=== PATIENT | female | born 1940 | race Two or more races ===

== ENCOUNTER 2023-06-06 20:29 | Inpatient (IN) | payer MEDICARE, OTHER ==
[~2023-06-06] VITALS: Ht 152.4 cm; Wt 49.0 kg
[2023-06-06] MEDS ORDERED: IV NS 0.9% 1,000 ML BAG IV ONE (21:30)
[2023-06-06 21:58] LABS: BASOPHILS % (AUTO) 0.1 % (0.0-2.0); EOSINOPHILS # (AUTO) 0.1 K/uL (0.0-0.7); EOSINOPHILS % (AUTO) 1.4 % (0.0-6.0); HEMATOCRIT 45 % (33-45); HEMOGLOBIN 14.2 g/dL (11.5-14.8); LYMPHOCYTES # (AUTO) 1.5 K/uL (0.8-4.8); LYMPHOCYTES % (AUTO) 17.4 % (20.0-44.0); MEAN CORPUSCULAR HEMOGLOBIN 29 PG (26.0-33.0); MEAN CORPUSCULAR HGB CONC 31 g/dl (31.0-36.0); MEAN CORPUSCULAR VOLUME 92 fL (82-100); MONOCYTES # (AUTO) 0.8 K/uL (0.1-1.30); MONOCYTES % (AUTO) 8.7 % (2.0-12.0); NEUTROPHILS # (AUTO) 6.4 K/uL (1.8-8.9); NEUTROPHILS % (AUTO) 72.4 % (43.0-81.0); PLATELET COUNT (AUTO) 142 K/uL (150-450); RED CELL DISTRIBUTION WIDTH 16.5 % (11.5-15.0); WHITE BLOOD COUNT (AUTO) 8.9 K/uL (4.3-11.0)
[2023-06-06 22:15] LABS: LACTIC ACID 1.4 mmol/L (0.4-2.0)
[2023-06-06 22:20] LABS: THYROID STIMULATING HORMONE 0.458 uIU/mL (0.358-3.74)
[2023-06-06 22:43] LABS: APPEARANCE,URINE SLIGHTLY CLOUDY (CLEAR); BILIRUBIN,URINE NEGATIVE (NEGATIVE); BLOOD, URINE 1+ Ery/uL (NEGATIVE); COLOR,URINE YELLOW (YELLOW); KETONES,URINE NEGATIVE (NEGATIVE); LEUKOCYTE ESTERASE ,URINE NEGATIVE (NEGATIVE); NITRITE, URINE NEGATIVE (NEGATIVE); PH,URINE 5.5 (5.0-8.0); PROTEIN,URINE 2+ mg/dl (NEGATIVE); UGLUCOSE 3+ mg/dL (NEGATIVE); UROBILINOGEN,URINE 0.2 EU/dL (0.2)
[2023-06-06 23:10] LABS: ALKALINE PHOSPHATASE 164 U/L (46-116); ASPARTATE AMINOTRANSFERASE 57 U/L (15-37); BILIRUBIN,DIRECT 0.2 mg/dL (0.0-0.2); BILIRUBIN,TOTAL 0.8 mg/dL (0.2-1.0)
[2023-06-06 23:11] LABS: ALANINE AMINOTRANSFERASE 134 U/L (12-78); ALBUMIN 2.9 g/dL (3.4-5.0); TOTAL PROTEIN, SERUM 6.9 g/dL (6.4-8.2)
[2023-06-06 23:17] LABS: CALCIUM, SERUM 8.9 mg/dL (8.5-10.1); CARBON DIOXIDE 24 mmol/L (21-32)
[2023-06-06 23:22] LABS: CHLORIDE 131 mmol/L (98-107); GLUCOSE 674 mg/dL (74-106); SODIUM SERUM 167 mmol/L (136-145); UREA NITROGEN, BLOOD 87 mg/dL (7-18)
[2023-06-07] MEDS ORDERED: ZOLPIDEM TARTRATE 5 MG TABLET PO PRN
[2023-06-07] MEDS ORDERED: IV NS 0.9% 1,000 ML IV PRN
[2023-06-07] MEDS ORDERED: Z GUARD REMEDY 4 OZ OINT TP PRN
[2023-06-07] MEDS ORDERED: INSULIN REGULAR, HUMAN 100 UNIT/ML 3 ML VIAL SQ PRN
[2023-06-07] MEDS ORDERED: ACETAMINOPHEN 325 MG TABLET PO PRN
[2023-06-07] MEDS ORDERED: *INSULIN REGULAR(HUMULIN R)HUM 100 UNIT/ML VIAL SQ PRN
[2023-06-07] MEDS ORDERED: MAGNESIUM HYDROXIDE 30 ML UDC PO PRN
[2023-06-07] MEDS ORDERED: MAG HYDROX/AL HYDROX/SIMETH 30 ML UDC PO PRN
[2023-06-07] MEDS ORDERED: ONDANSETRON HCL/PF 4 MG/2 ML VIAL IVP PRN
[2023-06-07 00:09] LABS: ADD URINE CULTURE YES; BACTERIA,URINE 4+ /HPF (None Seen); MUCUS,URINE Many /LPF (None Seen); RBC,URINE 0-2 /HPF (0-2); WBC,URINE 0-2 /HPF (0-3); YEAST,URINE Few /HPF (None Seen)
[2023-06-07 04:00] VITALS: BP 145/73; TEMP 97.6; O2SAT 93
[2023-06-07 05:54] LABS: BASOPHILS % (AUTO) 0.1 % (0.0-2.0); EOSINOPHILS # (AUTO) 0.1 K/uL (0.0-0.7); EOSINOPHILS % (AUTO) 1.2 % (0.0-6.0); HEMATOCRIT 43 % (33-45); HEMOGLOBIN 13.4 g/dL (11.5-14.8); LYMPHOCYTES # (AUTO) 1.6 K/uL (0.8-4.8); LYMPHOCYTES % (AUTO) 17.1 % (20.0-44.0); MEAN CORPUSCULAR HEMOGLOBIN 29 PG (26.0-33.0); MEAN CORPUSCULAR HGB CONC 31 g/dl (31.0-36.0); MEAN CORPUSCULAR VOLUME 92 fL (82-100); MONOCYTES # (AUTO) 0.8 K/uL (0.1-1.30); MONOCYTES % (AUTO) 8.4 % (2.0-12.0); NEUTROPHILS # (AUTO) 6.7 K/uL (1.8-8.9); NEUTROPHILS % (AUTO) 73.2 % (43.0-81.0); PLATELET COUNT (AUTO) 128 K/uL (150-450); RED BLOOD CELL COUNT(AUTO) 4.68 MIL/uL (4.0-5.2); RED CELL DISTRIBUTION WIDTH 15.9 % (11.5-15.0); WHITE BLOOD COUNT (AUTO) 9.1 K/uL (4.3-11.0)
[2023-06-07 06:14] LABS: ALANINE AMINOTRANSFERASE 109 U/L (12-78); ALBUMIN 2.8 g/dL (3.4-5.0); ALKALINE PHOSPHATASE 140 U/L (46-116); ASPARTATE AMINOTRANSFERASE 33 U/L (15-37); BILIRUBIN,DIRECT 0.2 mg/dL (0.0-0.2); BILIRUBIN,TOTAL 0.9 mg/dL (0.2-1.0); CALCIUM, SERUM 8.9 mg/dL (8.5-10.1); CARBON DIOXIDE 24 mmol/L (21-32); CREATININE 2.8 mg/dL (0.6-1.3); MAGNESIUM 2.7 mg/dL (1.8-2.4); POTASSIUM 3.7 mmol/L (3.5-5.1); TOTAL PROTEIN, SERUM 6.5 g/dL (6.4-8.2)
[2023-06-07 06:28] LABS: SODIUM SERUM 170 mmol/L (136-145); THYROID STIMULATING HORMONE 0.404 uIU/mL (0.358-3.74)
[2023-06-07 06:29] LABS: CHLORIDE 133 mmol/L (98-107); GLUCOSE 548 mg/dL (74-106); UREA NITROGEN, BLOOD 86 mg/dL (7-18)
[2023-06-07] MEDS ORDERED: IV 1/2NS 1000 ML 1,000 ML IV PRN ×2 (06:41)
[2023-06-07] MEDS ORDERED: DEXTROSE 50%-WATER 50 ML DISP.SYRIN IV PRN ×2 (07:00)
[2023-06-07] MEDS: BLOOD SUGAR DIAGNOSTIC 1 EACH STRIP IN SCH ×5 (07:06→21:22)
[2023-06-07] MEDS: INSULIN REGULAR, HUMAN 100 UNIT/ML 3 ML VIAL SQ PRN ×4 (07:07→16:59)
[2023-06-07] MEDS ORDERED: BLOOD SUGAR DIAGNOSTIC 1 EACH STRIP VI SCH (07:30)
[2023-06-07 08:00] VITALS: BP 147/92; TEMP 97.4; O2SAT 97
[2023-06-07] MEDS ORDERED: ALLO100T PO (08:02)
[2023-06-07] MEDS ORDERED: CHOL3000 PO (08:02)
[2023-06-07] MEDS ORDERED: DIVA-76 PO (08:02)
[2023-06-07] MEDS ORDERED: METO100T14 PO (08:02)
[2023-06-07] MEDS ORDERED: QUET100T PO (08:02)
[2023-06-07] MEDS ORDERED: AMLO5TAB4 PO (08:02)
[2023-06-07] MEDS ORDERED: DOCU250C14 PO (08:02)
[2023-06-07] MEDS ORDERED: HALO2TAB PO (08:02)
[2023-06-07] MEDS ORDERED: ACET-868 PO (08:02)
[2023-06-07] MEDS ORDERED: MAGN400O6 PO (08:02)
[2023-06-07] MEDS ORDERED: ATOR20TA PO (08:02)
[2023-06-07] MEDS ORDERED: CLOP75TA15 PO (08:02)
[2023-06-07] MEDS ORDERED: EMPA25TA PO (08:02)
[2023-06-07] MEDS ORDERED: PANT40TA2 PO (08:02)
[2023-06-07] MEDS ORDERED: MAG-151 PO (08:02)
[2023-06-07] MEDS: PANTOPRAZOLE 40 MG TABLET.DR PO SCH (09:04)
[2023-06-07] MEDS: PIPERACILLIN /TAZOBACTAM 2.25 G in IV D5W 50 ML IV SCH ×3 (09:05→21:02)
[2023-06-07 12:00] VITALS: BP 144/59; TEMP 97.6; O2SAT 96
[2023-06-07 13:28] LABS: CALCIUM, SERUM 8.9 mg/dL (8.5-10.1); CARBON DIOXIDE 24 mmol/L (21-32); CREATININE 2.6 mg/dL (0.6-1.3); GLUCOSE 92 mg/dL (74-106)
[2023-06-07 13:31] LABS: CHLORIDE 137 mmol/L (98-107); SODIUM SERUM 174 mmol/L (136-145); UREA NITROGEN, BLOOD 83 mg/dL (7-18)
[2023-06-07] MEDS: IV D5W 1,000 ML IV PRN ×2 (14:48→20:40)
[2023-06-07 16:00] VITALS: BP 133/70; TEMP 97.9; O2SAT 98
[2023-06-07] MEDS ORDERED: IV D5W 1,000 ML IV ONE (16:00)
[2023-06-07 16:17] LABS: APPEARANCE,URINE CLOUDY (CLEAR); BILIRUBIN,URINE NEGATIVE (NEGATIVE); BLOOD, URINE 1+ Ery/uL (NEGATIVE); COLOR,URINE YELLOW (YELLOW); KETONES,URINE NEGATIVE (NEGATIVE); LEUKOCYTE ESTERASE ,URINE NEGATIVE (NEGATIVE); NITRITE, URINE NEGATIVE (NEGATIVE); PH,URINE 5.5 (5.0-8.0); PROTEIN,URINE 2+ mg/dl (NEGATIVE); UGLUCOSE 3+ mg/dL (NEGATIVE); UROBILINOGEN,URINE 0.2 EU/dL (0.2)
[2023-06-07] MEDS: POTASSIUM CL. PREMIX PERIPHER. 50 ML IV SCH ×4 (16:19→19:25)
[2023-06-07 16:39] LABS: ADD URINE CULTURE YES; BACTERIA,URINE Many /HPF (None Seen); SQUAMOUS EPITHELIAL CELL,UR Moderate /HPF (None Seen); YEAST,URINE Many /HPF (None Seen)
[2023-06-07 17:00] LABS: WBC,URINE 0-2 /HPF (0-3)
[2023-06-07 17:03] LABS: CALCIUM, SERUM 8.1 mg/dL (8.5-10.1); CARBON DIOXIDE 21 mmol/L (21-32); CREATININE 2.5 mg/dL (0.6-1.3); GLUCOSE 192 mg/dL (74-106); POTASSIUM 3.2 mmol/L (3.5-5.1); UREA NITROGEN, BLOOD 76 mg/dL (7-18)
[2023-06-07 17:05] LABS: CHLORIDE 136 mmol/L (98-107); SODIUM SERUM 170 mmol/L (136-145)
[2023-06-07 19:07] LABS: CALCIUM, SERUM 8.3 mg/dL (8.5-10.1); CARBON DIOXIDE 22 mmol/L (21-32); CREATININE 2.4 mg/dL (0.6-1.3); GLUCOSE 167 mg/dL (74-106); POTASSIUM 3.4 mmol/L (3.5-5.1); UREA NITROGEN, BLOOD 74 mg/dL (7-18)
[2023-06-07 19:11] LABS: CHLORIDE 131 mmol/L (98-107); SODIUM SERUM 166 mmol/L (136-145)
[2023-06-07 20:00] VITALS: BP 124/73; TEMP 98.4; O2SAT 98
[2023-06-07 22:51] LABS: CREATININE, URINE 86.4 MG/DL (30.0-125.0); URINE TOTAL PROTEIN 304.5 mg/dL (0-11.9)
[2023-06-08] VITALS: BP 144/68; TEMP 97.5; O2SAT 98
[2023-06-08] MEDS: BLOOD SUGAR DIAGNOSTIC 1 EACH STRIP IN SCH ×6 (01:04→21:58)
[2023-06-08] MEDS: INSULIN REGULAR, HUMAN 100 UNIT/ML 3 ML VIAL SQ PRN ×5 (01:07→22:21)
[2023-06-08 04:00] VITALS: BP 120/62; TEMP 97.6; O2SAT 96
[2023-06-08] MEDS: PIPERACILLIN /TAZOBACTAM 2.25 G in IV D5W 50 ML IV SCH ×3 (05:18→21:58)
[2023-06-08] MEDS: IV D5W 1,000 ML IV PRN ×2 (05:29→17:14)
[2023-06-08 06:28] LABS: BASOPHILS % (AUTO) 0.2 % (0.0-2.0); EOSINOPHILS # (AUTO) 0.2 K/uL (0.0-0.7); EOSINOPHILS % (AUTO) 1.9 % (0.0-6.0); HEMATOCRIT 38 % (33-45); LYMPHOCYTES # (AUTO) 1.6 K/uL (0.8-4.8); LYMPHOCYTES % (AUTO) 17.4 % (20.0-44.0); MEAN CORPUSCULAR HEMOGLOBIN 29 PG (26.0-33.0); MEAN CORPUSCULAR HGB CONC 32 g/dl (31.0-36.0); MEAN CORPUSCULAR VOLUME 91 fL (82-100); MONOCYTES # (AUTO) 0.7 K/uL (0.1-1.30); MONOCYTES % (AUTO) 7.3 % (2.0-12.0); NEUTROPHILS # (AUTO) 6.7 K/uL (1.8-8.9); NEUTROPHILS % (AUTO) 73.2 % (43.0-81.0); PLATELET COUNT (AUTO) 102 K/uL (150-450); RED BLOOD CELL COUNT(AUTO) 4.14 MIL/uL (4.0-5.2); RED CELL DISTRIBUTION WIDTH 15.5 % (11.5-15.0); WHITE BLOOD COUNT (AUTO) 9.1 K/uL (4.3-11.0)
[2023-06-08] MEDS: PANTOPRAZOLE 40 MG TABLET.DR PO SCH (07:30)
[2023-06-08 08:00] VITALS: BP 157/77; TEMP 97.9; O2SAT 100
[2023-06-08 08:03] LABS: ALANINE AMINOTRANSFERASE 74 U/L (12-78); ALBUMIN 2.4 g/dL (3.4-5.0); ALKALINE PHOSPHATASE 102 U/L (46-116); ASPARTATE AMINOTRANSFERASE 36 U/L (15-37); BILIRUBIN,TOTAL 1.1 mg/dL (0.2-1.0); CARBON DIOXIDE 22 mmol/L (21-32); CHLORIDE 125 mmol/L (98-107); CREATININE 2.2 mg/dL (0.6-1.3); GLUCOSE 358 mg/dL (74-106); MAGNESIUM 1.9 mg/dL (1.8-2.4); PHOSPHORUS 2.8 mg/dL (2.5-4.9); POTASSIUM 3.9 mmol/L (3.5-5.1); TOTAL PROTEIN, SERUM 5.5 g/dL (6.4-8.2); UREA NITROGEN, BLOOD 64 mg/dL (7-18)
[2023-06-08 08:08] LABS: SODIUM SERUM 157 mmol/L (136-145)
[2023-06-08 12:00] VITALS: BP 165/82; TEMP 98; O2SAT 98
[2023-06-08 16:00] VITALS: BP 155/81; TEMP 98.5; O2SAT 99
[2023-06-08] MEDS: GLUCERNA SHAKE 237 ML CAN PO SCH (16:32)
[2023-06-08] MEDS: CLOTRIMAZOLE 1% 15 GM TUBE TP SCH (16:33)
[2023-06-08 20:00] VITALS: BP 132/81; TEMP 97.8; O2SAT 98
[2023-06-09] MEDS: BLOOD SUGAR DIAGNOSTIC 1 EACH STRIP IN SCH ×6 (01:07→22:04)
[2023-06-09 04:00] VITALS: BP 152/75; TEMP 97; O2SAT 97
[2023-06-09] MEDS: PIPERACILLIN /TAZOBACTAM 2.25 G in IV D5W 50 ML IV SCH ×4 (04:01→20:24)
[2023-06-09] MEDS: INSULIN REGULAR, HUMAN 100 UNIT/ML 3 ML VIAL SQ PRN ×5 (04:21→22:07)
[2023-06-09] MEDS: IV D5W 1,000 ML IV PRN ×2 (04:27→12:07)
[2023-06-09 07:35] LABS: BASOPHILS % (AUTO) 0.2 % (0.0-2.0); EOSINOPHILS # (AUTO) 0.2 K/uL (0.0-0.7); EOSINOPHILS % (AUTO) 2.1 % (0.0-6.0); HEMATOCRIT 39 % (33-45); HEMOGLOBIN 12.9 g/dL (11.5-14.8); LYMPHOCYTES # (AUTO) 1.5 K/uL (0.8-4.8); LYMPHOCYTES % (AUTO) 19.8 % (20.0-44.0); MEAN CORPUSCULAR HEMOGLOBIN 29 PG (26.0-33.0); MEAN CORPUSCULAR HGB CONC 33 g/dl (31.0-36.0); MEAN CORPUSCULAR VOLUME 88 fL (82-100); MONOCYTES # (AUTO) 0.6 K/uL (0.1-1.30); MONOCYTES % (AUTO) 7.2 % (2.0-12.0); NEUTROPHILS # (AUTO) 5.5 K/uL (1.8-8.9); NEUTROPHILS % (AUTO) 70.7 % (43.0-81.0); PLATELET COUNT (AUTO) 95 K/uL (150-450); RED BLOOD CELL COUNT(AUTO) 4.43 MIL/uL (4.0-5.2); RED CELL DISTRIBUTION WIDTH 14.9 % (11.5-15.0); WHITE BLOOD COUNT (AUTO) 7.8 K/uL (4.3-11.0)
[2023-06-09] MEDS: PANTOPRAZOLE 40 MG TABLET.DR PO SCH ×2 (07:43→17:18)
[2023-06-09 07:59] LABS: CALCIUM, SERUM 7.8 mg/dL (8.5-10.1); CARBON DIOXIDE 22 mmol/L (21-32); CHLORIDE 114 mmol/L (98-107); CREATININE 1.8 mg/dL (0.6-1.3); GLUCOSE 178 mg/dL (74-106); POTASSIUM 3.1 mmol/L (3.5-5.1); SODIUM SERUM 148 mmol/L (136-145); UREA NITROGEN, BLOOD 39 mg/dL (7-18)
[2023-06-09] MEDS: GLUCERNA SHAKE 237 ML CAN PO SCH ×2 (08:00→17:18)
[2023-06-09] MEDS: CLOTRIMAZOLE 1% 15 GM TUBE TP SCH ×2 (09:14→17:31)
[2023-06-09] MEDS ORDERED: POTASSIUM CHLORIDE 20 MEQ TAB.PRT.SR PO SCH ×2 (10:00→10:30)
[2023-06-09 12:00] VITALS: BP 155/84; TEMP 97.9; O2SAT 97
[2023-06-09 12:09] LABS: ANISOCYTOSIS 1+; BASOPHILS % (MANUAL) 0 % (0.0-2.0); EOSINOPHILS % (MANUAL) 4 % (0-4); LYMPHOCYTES % (MANUAL) 17 % (16-48); MONOCYTES % (MANUAL) 6 % (0-11.0); NEUTROPHILS % (MANUAL) 73 (42-76); PLATELET ESTIMATE DECREASED
[2023-06-09] MEDS ORDERED: LORAZEPAM INJ 2 MG/ML VIAL IV PRN (16:00)
[2023-06-09] MEDS: ALLOPURINOL 100 MG TABLET PO SCH (17:17)
[2023-06-09] MEDS: DIVALPROEX SODIUM 250 MG TABLET.DR PO SCH (17:17)
[2023-06-09 20:00] VITALS: BP 135/72; TEMP 97.5; O2SAT 98
[2023-06-09] MEDS: QUETIAPINE FUMARATE 100 MG TABLET PO SCH (22:04)
[2023-06-09] MEDS: ATORVASTATIN 10 MG TABLET PO SCH (22:04)
[2023-06-10] MEDS: BLOOD SUGAR DIAGNOSTIC 1 EACH STRIP IN SCH ×6 (01:41→21:16)
[2023-06-10] MEDS: INSULIN REGULAR, HUMAN 100 UNIT/ML 3 ML VIAL SQ PRN ×5 (01:48→21:40)
[2023-06-10] MEDS: IV D5W 1,000 ML IV PRN ×2 (03:31→12:44)
[2023-06-10 04:00] VITALS: BP 155/62; TEMP 98.2; O2SAT 100
[2023-06-10] MEDS: PIPERACILLIN /TAZOBACTAM 2.25 G in IV D5W 50 ML IV SCH ×3 (04:26→20:09)
[2023-06-10 06:27] LABS: BASOPHILS % (AUTO) 0.4 % (0.0-2.0); EOSINOPHILS # (AUTO) 0.2 K/uL (0.0-0.7); EOSINOPHILS % (AUTO) 3.3 % (0.0-6.0); HEMATOCRIT 36 % (33-45); HEMOGLOBIN 11.8 g/dL (11.5-14.8); LYMPHOCYTES # (AUTO) 1.6 K/uL (0.8-4.8); LYMPHOCYTES % (AUTO) 22.1 % (20.0-44.0); MEAN CORPUSCULAR HEMOGLOBIN 29 PG (26.0-33.0); MEAN CORPUSCULAR HGB CONC 33 g/dl (31.0-36.0); MEAN CORPUSCULAR VOLUME 88 fL (82-100); MONOCYTES # (AUTO) 0.7 K/uL (0.1-1.30); MONOCYTES % (AUTO) 10.1 % (2.0-12.0); NEUTROPHILS # (AUTO) 4.5 K/uL (1.8-8.9); NEUTROPHILS % (AUTO) 64.1 % (43.0-81.0); PLATELET COUNT (AUTO) 83 K/uL (150-450); RED BLOOD CELL COUNT(AUTO) 4.09 MIL/uL (4.0-5.2); RED CELL DISTRIBUTION WIDTH 15.1 % (11.5-15.0); WHITE BLOOD COUNT (AUTO) 7.1 K/uL (4.3-11.0)
[2023-06-10 06:53] LABS: CALCIUM, SERUM 8.2 mg/dL (8.5-10.1); CARBON DIOXIDE 22 mmol/L (21-32); CHLORIDE 113 mmol/L (98-107); CREATININE 1.8 mg/dL (0.6-1.3); GLUCOSE 216 mg/dL (74-106); POTASSIUM 3.4 mmol/L (3.5-5.1); SODIUM SERUM 145 mmol/L (136-145); UREA NITROGEN, BLOOD 28 mg/dL (7-18)
[2023-06-10] MEDS: PANTOPRAZOLE 40 MG TABLET.DR PO SCH ×2 (07:30→16:30)
[2023-06-10] MEDS: DOCUSATE SODIUM 250 MG CAPSULE PO SCH (08:46)
[2023-06-10] MEDS: DIVALPROEX SODIUM 250 MG TABLET.DR PO SCH ×2 (08:46→17:38)
[2023-06-10] MEDS: METOPROLOL TARTRATE 50 MG TABLET PO SCH (08:47)
[2023-06-10] MEDS: EMPAGLIFLOZIN 25 MG TABLET PO SCH (08:47)
[2023-06-10] MEDS: AMLODIPINE BESYLATE 5 MG TABLET PO SCH (08:48)
[2023-06-10] MEDS: CLOPIDOGREL BISULFATE 75 MG TABLET PO SCH (08:49)
[2023-06-10] MEDS: CHOLECALCIFEROL 1,000 UNIT TABLET (VIT D3) PO SCH (08:52)
[2023-06-10] MEDS: CLOTRIMAZOLE 1% 15 GM TUBE TP SCH ×2 (08:53→17:36)
[2023-06-10] MEDS: ALLOPURINOL 100 MG TABLET PO SCH ×2 (08:53→17:37)
[2023-06-10] MEDS: GLUCERNA SHAKE 237 ML CAN PO SCH ×2 (08:54→17:37)
[2023-06-10] MEDS ORDERED: POTASSIUM CHLORIDE 20 MEQ POWDER PACKET PO ONE (12:00)
[2023-06-10 15:57] LABS: ANISOCYTOSIS 1+; EOSINOPHILS % (MANUAL) 1 % (0-4); LYMPHOCYTES % (MANUAL) 23 % (16-48); MONOCYTES % (MANUAL) 8 % (0-11.0); NEUTROPHILS % (MANUAL) 68 (42-76); PLATELET ESTIMATE DECREASED
[2023-06-10 21:00] VITALS: BP 154/82; TEMP 97.5; O2SAT 98
[2023-06-10] MEDS: QUETIAPINE FUMARATE 100 MG TABLET PO SCH (21:17)
[2023-06-10] MEDS: ATORVASTATIN 10 MG TABLET PO SCH (21:17)
[2023-06-11] MEDS: BLOOD SUGAR DIAGNOSTIC 1 EACH STRIP IN SCH ×6 (00:27→21:37)
[2023-06-11] MEDS: INSULIN REGULAR, HUMAN 100 UNIT/ML 3 ML VIAL SQ PRN ×5 (00:30→21:37)
[2023-06-11] MEDS: IV D5W 1,000 ML IV PRN ×2 (03:22→09:18)
[2023-06-11] MEDS: PIPERACILLIN /TAZOBACTAM 2.25 G in IV D5W 50 ML IV SCH ×3 (04:06→21:24)
[2023-06-11 05:00] VITALS: BP 111/59; TEMP 98; O2SAT 98
[2023-06-11] MEDS: PANTOPRAZOLE 40 MG TABLET.DR PO SCH ×3 (07:30→16:22)
[2023-06-11 07:58] LABS: CALCIUM, SERUM 8.3 mg/dL (8.5-10.1); CARBON DIOXIDE 22 mmol/L (21-32); CHLORIDE 109 mmol/L (98-107); CREATININE 1.7 mg/dL (0.6-1.3); GLUCOSE 181 mg/dL (74-106); POTASSIUM 3.2 mmol/L (3.5-5.1); SODIUM SERUM 142 mmol/L (136-145); UREA NITROGEN, BLOOD 20 mg/dL (7-18)
[2023-06-11 08:00] VITALS: BP 147/85; TEMP 97.9; O2SAT 98
[2023-06-11 08:08] LABS: BASOPHILS % (AUTO) 0.1 % (0.0-2.0); EOSINOPHILS # (AUTO) 0.2 K/uL (0.0-0.7); HEMATOCRIT 36 % (33-45); HEMOGLOBIN 11.9 g/dL (11.5-14.8); LYMPHOCYTES # (AUTO) 1.4 K/uL (0.8-4.8); LYMPHOCYTES % (AUTO) 20.3 % (20.0-44.0); MEAN CORPUSCULAR HEMOGLOBIN 29 PG (26.0-33.0); MEAN CORPUSCULAR HGB CONC 33 g/dl (31.0-36.0); MEAN CORPUSCULAR VOLUME 86 fL (82-100); MONOCYTES # (AUTO) 0.7 K/uL (0.1-1.30); MONOCYTES % (AUTO) 9.5 % (2.0-12.0); NEUTROPHILS # (AUTO) 4.7 K/uL (1.8-8.9); NEUTROPHILS % (AUTO) 67.1 % (43.0-81.0); PLATELET COUNT (AUTO) 98 K/uL (150-450); RED BLOOD CELL COUNT(AUTO) 4.15 MIL/uL (4.0-5.2); RED CELL DISTRIBUTION WIDTH 14.8 % (11.5-15.0)
[2023-06-11] MEDS: ALLOPURINOL 100 MG TABLET PO SCH ×3 (08:12→16:22)
[2023-06-11] MEDS: CLOPIDOGREL BISULFATE 75 MG TABLET PO SCH ×2 (08:12→08:27)
[2023-06-11] MEDS: CHOLECALCIFEROL 1,000 UNIT TABLET (VIT D3) PO SCH ×2 (08:12→08:28)
[2023-06-11] MEDS: EMPAGLIFLOZIN 25 MG TABLET PO SCH ×2 (08:12→08:27)
[2023-06-11] MEDS: DOCUSATE SODIUM 250 MG CAPSULE PO SCH ×2 (08:12→08:27)
[2023-06-11] MEDS: DIVALPROEX SODIUM 250 MG TABLET.DR PO SCH ×3 (08:12→16:22)
[2023-06-11] MEDS: AMLODIPINE BESYLATE 5 MG TABLET PO SCH ×2 (08:13→08:27)
[2023-06-11] MEDS: METOPROLOL TARTRATE 50 MG TABLET PO SCH ×2 (08:13→08:27)
[2023-06-11] MEDS: GLUCERNA SHAKE 237 ML CAN PO SCH ×2 (08:30→16:54)
[2023-06-11] MEDS: CLOTRIMAZOLE 1% 15 GM TUBE TP SCH ×2 (08:31→16:56)
[2023-06-11 16:00] VITALS: BP 148/69; TEMP 98; O2SAT 97
[2023-06-11] MEDS: QUETIAPINE FUMARATE 100 MG TABLET PO SCH (21:25)
[2023-06-11] MEDS: ATORVASTATIN 10 MG TABLET PO SCH (21:25)
[2023-06-12] VITALS: BP 150/64; TEMP 98.2; O2SAT 97
[2023-06-12] MEDS: BLOOD SUGAR DIAGNOSTIC 1 EACH STRIP IN SCH ×6 (01:07→21:18)
[2023-06-12] MEDS: INSULIN REGULAR, HUMAN 100 UNIT/ML 3 ML VIAL SQ PRN ×5 (01:13→22:20)
[2023-06-12] MEDS: PIPERACILLIN /TAZOBACTAM 2.25 G in IV D5W 50 ML IV SCH (04:54)
[2023-06-12] MEDS: PANTOPRAZOLE 40 MG TABLET.DR PO SCH ×4 (07:30→15:44)
[2023-06-12 07:38] LABS: BASOPHILS % (AUTO) 0.3 % (0.0-2.0); EOSINOPHILS # (AUTO) 0.2 K/uL (0.0-0.7); EOSINOPHILS % (AUTO) 2.6 % (0.0-6.0); HEMATOCRIT 37 % (33-45); HEMOGLOBIN 12.2 g/dL (11.5-14.8); LYMPHOCYTES # (AUTO) 1.7 K/uL (0.8-4.8); LYMPHOCYTES % (AUTO) 18.7 % (20.0-44.0); MEAN CORPUSCULAR HEMOGLOBIN 29 PG (26.0-33.0); MEAN CORPUSCULAR HGB CONC 33 g/dl (31.0-36.0); MEAN CORPUSCULAR VOLUME 86 fL (82-100); MONOCYTES % (AUTO) 10.7 % (2.0-12.0); NEUTROPHILS # (AUTO) 6.1 K/uL (1.8-8.9); NEUTROPHILS % (AUTO) 67.7 % (43.0-81.0); PLATELET COUNT (AUTO) 123 K/uL (150-450); RED BLOOD CELL COUNT(AUTO) 4.26 MIL/uL (4.0-5.2); RED CELL DISTRIBUTION WIDTH 14.9 % (11.5-15.0)
[2023-06-12 07:40] LABS: CALCIUM, SERUM 8.2 mg/dL (8.5-10.1); CARBON DIOXIDE 20 mmol/L (21-32); CHLORIDE 108 mmol/L (98-107); CREATININE 1.5 mg/dL (0.6-1.3); GLUCOSE 111 mg/dL (74-106); POTASSIUM 3.5 mmol/L (3.5-5.1); SODIUM SERUM 138 mmol/L (136-145); UREA NITROGEN, BLOOD 14 mg/dL (7-18)
[2023-06-12 08:00] VITALS: BP 161/74; TEMP 97.5; O2SAT 99
[2023-06-12] MEDS: ALLOPURINOL 100 MG TABLET PO SCH ×3 (08:16→16:20)
[2023-06-12] MEDS: GLUCERNA SHAKE 237 ML CAN PO SCH ×2 (08:16→16:18)
[2023-06-12] MEDS: DOCUSATE SODIUM 250 MG CAPSULE PO SCH ×2 (08:16→08:50)
[2023-06-12] MEDS: DIVALPROEX SODIUM 250 MG TABLET.DR PO SCH ×2 (08:16→16:18)
[2023-06-12] MEDS: CHOLECALCIFEROL 1,000 UNIT TABLET (VIT D3) PO SCH ×2 (08:16→08:51)
[2023-06-12] MEDS: METOPROLOL TARTRATE 50 MG TABLET PO SCH ×2 (08:16→08:50)
[2023-06-12] MEDS: CLOPIDOGREL BISULFATE 75 MG TABLET PO SCH ×2 (08:16→08:51)
[2023-06-12] MEDS: CLOTRIMAZOLE 1% 15 GM TUBE TP SCH ×2 (08:17→16:20)
[2023-06-12] MEDS: AMLODIPINE BESYLATE 5 MG TABLET PO SCH (08:17)
[2023-06-12] MEDS: EMPAGLIFLOZIN 25 MG TABLET PO SCH (08:20)
[2023-06-12 09:11] LABS: EOSINOPHILS % (MANUAL) 3 % (0-4); LYMPHOCYTES % (MANUAL) 21 % (16-48); MONOCYTES % (MANUAL) 7 % (0-11.0); NEUTROPHILS % (MANUAL) 69 (42-76); PLATELET ESTIMATE DECREASED
[2023-06-12 16:00] VITALS: BP 176/73; TEMP 97.8; O2SAT 99
[2023-06-12] MEDS ORDERED: IV D5/0.45 NACL 1,000 ML IV ONE (18:30)
[2023-06-12 20:00] VITALS: BP 165/88; TEMP 97; O2SAT 97
[2023-06-12] MEDS: PIPERACILLIN /TAZOBACTAM 3.375 G in IV D5W 100 ML IV SCH (20:00)
[2023-06-12] MEDS ORDERED: MIRTAZAPINE 15 MG TABLET PO SCH (22:00)
[2023-06-12] MEDS: QUETIAPINE FUMARATE 100 MG TABLET PO SCH (22:19)
[2023-06-12] MEDS: ATORVASTATIN 10 MG TABLET PO SCH (22:19)
[2023-06-13] MEDS: BLOOD SUGAR DIAGNOSTIC 1 EACH STRIP IN SCH ×6 (01:27→21:01)
[2023-06-13] MEDS: INSULIN REGULAR, HUMAN 100 UNIT/ML 3 ML VIAL SQ PRN ×4 (01:27→21:28)
[2023-06-13 04:00] VITALS: BP 141/71; TEMP 97; O2SAT 98
[2023-06-13 06:46] LABS: BASOPHILS % (AUTO) 0.3 % (0.0-2.0); EOSINOPHILS # (AUTO) 0.2 K/uL (0.0-0.7); EOSINOPHILS % (AUTO) 2.6 % (0.0-6.0); HEMATOCRIT 38 % (33-45); HEMOGLOBIN 12.8 g/dL (11.5-14.8); LYMPHOCYTES # (AUTO) 1.5 K/uL (0.8-4.8); LYMPHOCYTES % (AUTO) 20.7 % (20.0-44.0); MEAN CORPUSCULAR HEMOGLOBIN 29 PG (26.0-33.0); MEAN CORPUSCULAR HGB CONC 34 g/dl (31.0-36.0); MEAN CORPUSCULAR VOLUME 86 fL (82-100); MONOCYTES # (AUTO) 0.9 K/uL (0.1-1.30); MONOCYTES % (AUTO) 12.8 % (2.0-12.0); NEUTROPHILS # (AUTO) 4.5 K/uL (1.8-8.9); NEUTROPHILS % (AUTO) 63.6 % (43.0-81.0); PLATELET COUNT (AUTO) 146 K/uL (150-450); RED BLOOD CELL COUNT(AUTO) 4.46 MIL/uL (4.0-5.2); RED CELL DISTRIBUTION WIDTH 15.3 % (11.5-15.0)
[2023-06-13 07:08] LABS: CALCIUM, SERUM 8.6 mg/dL (8.5-10.1); CARBON DIOXIDE 24 mmol/L (21-32); CHLORIDE 108 mmol/L (98-107); CREATININE 1.7 mg/dL (0.6-1.3); GLUCOSE 123 mg/dL (74-106); POTASSIUM 3.1 mmol/L (3.5-5.1); SODIUM SERUM 142 mmol/L (136-145); UREA NITROGEN, BLOOD 12 mg/dL (7-18)
[2023-06-13] MEDS: PANTOPRAZOLE 40 MG TABLET.DR PO SCH ×3 (07:30→16:59)
[2023-06-13 08:00] VITALS: BP 169/67; TEMP 97.7; O2SAT 95
[2023-06-13] MEDS: GLUCERNA SHAKE 237 ML CAN PO SCH ×3 (08:00→16:59)
[2023-06-13] MEDS: PIPERACILLIN /TAZOBACTAM 3.375 G in IV D5W 100 ML IV SCH ×2 (08:42→21:01)
[2023-06-13] MEDS: THERAHONEY GEL 1.5 OZ TUBE TP SCH (08:49)
[2023-06-13] MEDS: CLOTRIMAZOLE 1% 15 GM TUBE TP SCH ×2 (08:49→16:59)
[2023-06-13] MEDS: AMLODIPINE BESYLATE 5 MG TABLET PO SCH ×2 (08:54→09:00)
[2023-06-13] MEDS: DOCUSATE SODIUM 250 MG CAPSULE PO SCH ×2 (08:55→09:00)
[2023-06-13] MEDS: CLOPIDOGREL BISULFATE 75 MG TABLET PO SCH ×2 (08:55→09:00)
[2023-06-13] MEDS: DIVALPROEX SODIUM 250 MG TABLET.DR PO SCH ×3 (08:56→16:59)
[2023-06-13] MEDS: METOPROLOL TARTRATE 50 MG TABLET PO SCH ×2 (08:56→09:00)
[2023-06-13] MEDS: CHOLECALCIFEROL 1,000 UNIT TABLET (VIT D3) PO SCH ×2 (08:56→09:00)
[2023-06-13] MEDS: ALLOPURINOL 100 MG TABLET PO SCH ×3 (08:57→16:59)
[2023-06-13] MEDS: EMPAGLIFLOZIN 25 MG TABLET PO SCH (09:00)
[2023-06-13] MEDS ORDERED: POTASSIUM CHLORIDE 20 MEQ POWDER PACKET PO SCH (10:30)
[2023-06-13] MEDS: POTASSIUM CL. PREMIX PERIPHER. 50 ML IV SCH ×3 (10:34→13:25)
[2023-06-13] MEDS: hydrALAZINE HCL IV 20 MG VIAL IV PRN (10:54)
[2023-06-13] MEDS: IV D5/0.45 NACL 1,000 ML IV SCH ×2 (12:23→19:28)
[2023-06-13 16:00] VITALS: BP 154/73; TEMP 98.2; O2SAT 100
[2023-06-13 20:40] VITALS: BP 158/71; TEMP 98.3; O2SAT 99
[2023-06-13] MEDS: MIRTAZAPINE 15 MG TABLET PO SCH (21:28)
[2023-06-13] MEDS: QUETIAPINE FUMARATE 100 MG TABLET PO SCH (21:28)
[2023-06-13] MEDS: ATORVASTATIN 10 MG TABLET PO SCH (21:29)
[2023-06-14 00:30] VITALS: BP 152/70
[2023-06-14] MEDS: BLOOD SUGAR DIAGNOSTIC 1 EACH STRIP IN SCH ×6 (01:29→22:02)
[2023-06-14] MEDS: INSULIN REGULAR, HUMAN 100 UNIT/ML 3 ML VIAL SQ PRN ×4 (01:51→22:03)
[2023-06-14 04:00] VITALS: BP 160/88; TEMP 98; O2SAT 98
[2023-06-14 06:53] LABS: BASOPHILS % (AUTO) 0.2 % (0.0-2.0); EOSINOPHILS # (AUTO) 0.1 K/uL (0.0-0.7); HEMATOCRIT 39 % (33-45); HEMOGLOBIN 13.1 g/dL (11.5-14.8); LYMPHOCYTES # (AUTO) 1.3 K/uL (0.8-4.8); LYMPHOCYTES % (AUTO) 20.2 % (20.0-44.0); MEAN CORPUSCULAR HEMOGLOBIN 29 PG (26.0-33.0); MEAN CORPUSCULAR HGB CONC 34 g/dl (31.0-36.0); MEAN CORPUSCULAR VOLUME 86 fL (82-100); MONOCYTES # (AUTO) 0.8 K/uL (0.1-1.30); MONOCYTES % (AUTO) 12.8 % (2.0-12.0); NEUTROPHILS # (AUTO) 4.1 K/uL (1.8-8.9); NEUTROPHILS % (AUTO) 64.8 % (43.0-81.0); PLATELET COUNT (AUTO) 154 K/uL (150-450); RED BLOOD CELL COUNT(AUTO) 4.54 MIL/uL (4.0-5.2); RED CELL DISTRIBUTION WIDTH 15.1 % (11.5-15.0); WHITE BLOOD COUNT (AUTO) 6.3 K/uL (4.3-11.0)
[2023-06-14 07:07] LABS: CALCIUM, SERUM 8.6 mg/dL (8.5-10.1); CARBON DIOXIDE 25 mmol/L (21-32); CHLORIDE 108 mmol/L (98-107); CREATININE 1.7 mg/dL (0.6-1.3); GLUCOSE 154 mg/dL (74-106); POTASSIUM 3.6 mmol/L (3.5-5.1); SODIUM SERUM 141 mmol/L (136-145); UREA NITROGEN, BLOOD 11 mg/dL (7-18)
[2023-06-14] MEDS: PANTOPRAZOLE 40 MG TABLET.DR PO SCH ×3 (07:30→16:30)
[2023-06-14 08:00] VITALS: BP 154/78; TEMP 97.8; O2SAT 98
[2023-06-14] MEDS: GLUCERNA SHAKE 237 ML CAN PO SCH ×3 (08:00→16:35)
[2023-06-14] MEDS: CHOLECALCIFEROL 1,000 UNIT TABLET (VIT D3) PO SCH ×2 (08:21→08:56)
[2023-06-14] MEDS: ALLOPURINOL 100 MG TABLET PO SCH ×3 (08:21→16:35)
[2023-06-14] MEDS: DIVALPROEX SODIUM 250 MG TABLET.DR PO SCH ×3 (08:21→16:35)
[2023-06-14] MEDS: THERAHONEY GEL 1.5 OZ TUBE TP SCH (08:22)
[2023-06-14] MEDS: METOPROLOL TARTRATE 50 MG TABLET PO SCH ×2 (08:22→08:38)
[2023-06-14] MEDS: CLOPIDOGREL BISULFATE 75 MG TABLET PO SCH ×2 (08:22→08:56)
[2023-06-14] MEDS: CLOTRIMAZOLE 1% 15 GM TUBE TP SCH ×2 (08:22→16:35)
[2023-06-14] MEDS: AMLODIPINE BESYLATE 5 MG TABLET PO SCH ×2 (08:22→08:55)
[2023-06-14] MEDS: EMPAGLIFLOZIN 25 MG TABLET PO SCH (08:37)
[2023-06-14] MEDS: DOCUSATE SODIUM 250 MG CAPSULE PO SCH (08:37)
[2023-06-14] MEDS: PIPERACILLIN /TAZOBACTAM 3.375 G in IV D5W 100 ML IV SCH ×2 (09:23→21:46)
[2023-06-14] MEDS: IV D5/0.45 NACL 1,000 ML IV SCH (15:35)
[2023-06-14 16:00] VITALS: BP 172/70; TEMP 97.5; O2SAT 99
[2023-06-14 20:00] VITALS: BP 141/96; TEMP 97.4; O2SAT 99
[2023-06-14] MEDS: MIRTAZAPINE 15 MG TABLET PO SCH (22:40)
[2023-06-14] MEDS: ATORVASTATIN 10 MG TABLET PO SCH (22:40)
[2023-06-14] MEDS: QUETIAPINE FUMARATE 100 MG TABLET PO SCH (22:40)
[2023-06-15] MEDS: BLOOD SUGAR DIAGNOSTIC 1 EACH STRIP IN SCH ×6 (01:34→21:00)
[2023-06-15] MEDS: INSULIN REGULAR, HUMAN 100 UNIT/ML 3 ML VIAL SQ PRN ×4 (01:36→22:30)
[2023-06-15 04:00] VITALS: BP 136/67; TEMP 97.5; O2SAT 99
[2023-06-15 07:27] LABS: BASOPHILS % (AUTO) 0.2 % (0.0-2.0); EOSINOPHILS # (AUTO) 0.1 K/uL (0.0-0.7); EOSINOPHILS % (AUTO) 1.9 % (0.0-6.0); HEMATOCRIT 38 % (33-45); HEMOGLOBIN 12.7 g/dL (11.5-14.8); LYMPHOCYTES # (AUTO) 1.3 K/uL (0.8-4.8); LYMPHOCYTES % (AUTO) 19.1 % (20.0-44.0); MEAN CORPUSCULAR HEMOGLOBIN 29 PG (26.0-33.0); MEAN CORPUSCULAR HGB CONC 33 g/dl (31.0-36.0); MEAN CORPUSCULAR VOLUME 87 fL (82-100); MONOCYTES # (AUTO) 0.8 K/uL (0.1-1.30); MONOCYTES % (AUTO) 12.1 % (2.0-12.0); NEUTROPHILS # (AUTO) 4.6 K/uL (1.8-8.9); NEUTROPHILS % (AUTO) 66.7 % (43.0-81.0); PLATELET COUNT (AUTO) 162 K/uL (150-450); RED BLOOD CELL COUNT(AUTO) 4.44 MIL/uL (4.0-5.2); RED CELL DISTRIBUTION WIDTH 15.3 % (11.5-15.0)
[2023-06-15 07:35] LABS: CALCIUM, SERUM 8.7 mg/dL (8.5-10.1); CARBON DIOXIDE 22 mmol/L (21-32); CHLORIDE 106 mmol/L (98-107); CREATININE 1.5 mg/dL (0.6-1.3); GLUCOSE 182 mg/dL (74-106); POTASSIUM 2.9 mmol/L (3.5-5.1); SODIUM SERUM 138 mmol/L (136-145); UREA NITROGEN, BLOOD 8 mg/dL (7-18)
[2023-06-15] MEDS: PIPERACILLIN /TAZOBACTAM 3.375 G in IV D5W 100 ML IV SCH ×2 (08:03→22:25)
[2023-06-15] MEDS: CHOLECALCIFEROL 1,000 UNIT TABLET (VIT D3) PO SCH (08:19)
[2023-06-15] MEDS: DOCUSATE SODIUM 250 MG CAPSULE PO SCH (08:19)
[2023-06-15] MEDS: CLOPIDOGREL BISULFATE 75 MG TABLET PO SCH (08:19)
[2023-06-15] MEDS: GLUCERNA SHAKE 237 ML CAN PO SCH ×2 (08:19→17:26)
[2023-06-15] MEDS: ALLOPURINOL 100 MG TABLET PO SCH ×2 (08:20→16:23)
[2023-06-15] MEDS: PANTOPRAZOLE 40 MG TABLET.DR PO SCH ×2 (08:20→16:23)
[2023-06-15] MEDS: DIVALPROEX SODIUM 250 MG TABLET.DR PO SCH ×2 (08:20→16:23)
[2023-06-15] MEDS: ENSURE ENLIVE CHOC 237 ML CAN PO SCH ×3 (08:28→17:00)
[2023-06-15] MEDS: METOPROLOL TARTRATE 50 MG TABLET PO SCH (08:29)
[2023-06-15] MEDS: AMLODIPINE BESYLATE 5 MG TABLET PO SCH (08:29)
[2023-06-15] MEDS: EMPAGLIFLOZIN 25 MG TABLET PO SCH (08:30)
[2023-06-15] MEDS: CLOTRIMAZOLE 1% 15 GM TUBE TP SCH ×2 (09:47→17:19)
[2023-06-15] MEDS: THERAHONEY GEL 1.5 OZ TUBE TP SCH (09:48)
[2023-06-15] MEDS: POTASSIUM CL. PREMIX PERIPHER. 50 ML IV SCH ×5 (10:21→15:16)
[2023-06-15 12:00] VITALS: BP 141/82; TEMP 98.7; O2SAT 99
[2023-06-15] MEDS: IV D5/0.45 NACL 1,000 ML IV SCH (16:23)
[2023-06-15 20:00] VITALS: BP 176/85; TEMP 97.2; O2SAT 98
[2023-06-15] MEDS: ATORVASTATIN 10 MG TABLET PO SCH (22:15)
[2023-06-15] MEDS: QUETIAPINE FUMARATE 100 MG TABLET PO SCH (22:16)
[2023-06-15] MEDS: MIRTAZAPINE 15 MG TABLET PO SCH (22:16)
[2023-06-16] VITALS: BP 167/79; TEMP 97.8; O2SAT 98
[2023-06-16] MEDS: BLOOD SUGAR DIAGNOSTIC 1 EACH STRIP IN SCH ×6 (02:03→21:56)
[2023-06-16] MEDS: INSULIN REGULAR, HUMAN 100 UNIT/ML 3 ML VIAL SQ PRN ×3 (02:05→21:57)
[2023-06-16 04:00] VITALS: BP 162/70; TEMP 97.4; O2SAT 98
[2023-06-16 07:25] LABS: BASOPHILS % (AUTO) 0.4 % (0.0-2.0); EOSINOPHILS # (AUTO) 0.2 K/uL (0.0-0.7); EOSINOPHILS % (AUTO) 2.8 % (0.0-6.0); HEMATOCRIT 37 % (33-45); HEMOGLOBIN 12.4 g/dL (11.5-14.8); LYMPHOCYTES # (AUTO) 1.7 K/uL (0.8-4.8); LYMPHOCYTES % (AUTO) 24.2 % (20.0-44.0); MEAN CORPUSCULAR HEMOGLOBIN 29 PG (26.0-33.0); MEAN CORPUSCULAR HGB CONC 33 g/dl (31.0-36.0); MEAN CORPUSCULAR VOLUME 86 fL (82-100); MONOCYTES # (AUTO) 0.8 K/uL (0.1-1.30); MONOCYTES % (AUTO) 10.8 % (2.0-12.0); NEUTROPHILS # (AUTO) 4.4 K/uL (1.8-8.9); NEUTROPHILS % (AUTO) 61.8 % (43.0-81.0); PLATELET COUNT (AUTO) 186 K/uL (150-450); RED BLOOD CELL COUNT(AUTO) 4.31 MIL/uL (4.0-5.2); RED CELL DISTRIBUTION WIDTH 15.5 % (11.5-15.0); WHITE BLOOD COUNT (AUTO) 7.1 K/uL (4.3-11.0)
[2023-06-16] MEDS: PANTOPRAZOLE 40 MG TABLET.DR PO SCH ×2 (07:51→16:30)
[2023-06-16] MEDS: GLUCERNA SHAKE 237 ML CAN PO SCH ×2 (07:52→17:00)
[2023-06-16 08:02] LABS: CALCIUM, SERUM 8.7 mg/dL (8.5-10.1); CARBON DIOXIDE 23 mmol/L (21-32); CHLORIDE 107 mmol/L (98-107); CREATININE 1.4 mg/dL (0.6-1.3); GLUCOSE 99 mg/dL (74-106); MAGNESIUM 1.9 mg/dL (1.8-2.4); PHOSPHORUS 3.3 mg/dL (2.5-4.9); POTASSIUM 3.3 mmol/L (3.5-5.1); SODIUM SERUM 141 mmol/L (136-145); UREA NITROGEN, BLOOD 6 mg/dL (7-18)
[2023-06-16] MEDS: CHOLECALCIFEROL 1,000 UNIT TABLET (VIT D3) PO SCH (09:36)
[2023-06-16] MEDS: PIPERACILLIN /TAZOBACTAM 3.375 G in IV D5W 100 ML IV SCH ×2 (09:36→21:36)
[2023-06-16] MEDS: DOCUSATE SODIUM 250 MG CAPSULE PO SCH (09:37)
[2023-06-16] MEDS: AMLODIPINE BESYLATE 5 MG TABLET PO SCH (09:37)
[2023-06-16] MEDS: CLOPIDOGREL BISULFATE 75 MG TABLET PO SCH (09:37)
[2023-06-16] MEDS: ALLOPURINOL 100 MG TABLET PO SCH ×2 (09:37→17:00)
[2023-06-16] MEDS: DIVALPROEX SODIUM 250 MG TABLET.DR PO SCH ×2 (09:37→17:00)
[2023-06-16] MEDS: METOPROLOL TARTRATE 50 MG TABLET PO SCH (09:37)
[2023-06-16] MEDS: CLOTRIMAZOLE 1% 15 GM TUBE TP SCH ×2 (09:42→17:33)
[2023-06-16] MEDS: EMPAGLIFLOZIN 25 MG TABLET PO SCH (09:42)
[2023-06-16] MEDS: THERAHONEY GEL 1.5 OZ TUBE TP SCH (09:43)
[2023-06-16] MEDS: IV D5/0.45 NACL 1,000 ML IV SCH (12:01)
[2023-06-16] MEDS: POTASSIUM CL. PREMIX PERIPHER. 50 ML IV SCH ×2 (12:04→13:06)
[2023-06-16 16:00] VITALS: BP 133/85; TEMP 98; O2SAT 95
[2023-06-16 20:00] VITALS: BP 161/70; TEMP 97.5; O2SAT 99
[2023-06-16] MEDS: ATORVASTATIN 10 MG TABLET PO SCH (21:37)
[2023-06-16] MEDS: MIRTAZAPINE 15 MG TABLET PO SCH (21:37)
[2023-06-16] MEDS: QUETIAPINE FUMARATE 100 MG TABLET PO SCH (21:38)
[2023-06-16] MEDS: hydrALAZINE HCL IV 20 MG VIAL IV PRN (21:44)
[2023-06-17] MEDS: BLOOD SUGAR DIAGNOSTIC 1 EACH STRIP IN SCH ×6 (01:17→21:38)
[2023-06-17] MEDS: INSULIN REGULAR, HUMAN 100 UNIT/ML 3 ML VIAL SQ PRN ×4 (01:18→21:38)
[2023-06-17 04:00] VITALS: BP 149/66; TEMP 98.4; O2SAT 98
[2023-06-17] MEDS: PANTOPRAZOLE 40 MG TABLET.DR PO SCH ×2 (07:30→17:00)
[2023-06-17] MEDS: GLUCERNA SHAKE 237 ML CAN PO SCH (08:00)
[2023-06-17] MEDS: ALLOPURINOL 100 MG TABLET PO SCH ×2 (09:00→17:00)
[2023-06-17] MEDS: CLOPIDOGREL BISULFATE 75 MG TABLET PO SCH (09:00)
[2023-06-17] MEDS: METOPROLOL TARTRATE 50 MG TABLET PO SCH (09:00)
[2023-06-17] MEDS: EMPAGLIFLOZIN 25 MG TABLET PO SCH (09:00)
[2023-06-17] MEDS: AMLODIPINE BESYLATE 5 MG TABLET PO SCH (09:00)
[2023-06-17] MEDS: DOCUSATE SODIUM 250 MG CAPSULE PO SCH (09:00)
[2023-06-17] MEDS: DIVALPROEX SODIUM 250 MG TABLET.DR PO SCH ×2 (09:00→17:00)
[2023-06-17] MEDS: CHOLECALCIFEROL 1,000 UNIT TABLET (VIT D3) PO SCH (09:00)
[2023-06-17] MEDS: CLOTRIMAZOLE 1% 15 GM TUBE TP SCH ×2 (09:05→17:01)
[2023-06-17] MEDS: THERAHONEY GEL 1.5 OZ TUBE TP SCH (09:06)
[2023-06-17] MEDS: PIPERACILLIN /TAZOBACTAM 3.375 G in IV D5W 100 ML IV SCH ×2 (09:09→21:38)
[2023-06-17 11:58] LABS: BASOPHILS % (AUTO) 0.3 % (0.0-2.0); EOSINOPHILS # (AUTO) 0.1 K/uL (0.0-0.7); EOSINOPHILS % (AUTO) 1.6 % (0.0-6.0); HEMATOCRIT 44 % (33-45); HEMOGLOBIN 14.2 g/dL (11.5-14.8); LYMPHOCYTES # (AUTO) 1.7 K/uL (0.8-4.8); LYMPHOCYTES % (AUTO) 23.3 % (20.0-44.0); MEAN CORPUSCULAR HEMOGLOBIN 29 PG (26.0-33.0); MEAN CORPUSCULAR HGB CONC 32 g/dl (31.0-36.0); MEAN CORPUSCULAR VOLUME 89 fL (82-100); MONOCYTES # (AUTO) 0.7 K/uL (0.1-1.30); NEUTROPHILS # (AUTO) 4.8 K/uL (1.8-8.9); NEUTROPHILS % (AUTO) 65.8 % (43.0-81.0); PLATELET COUNT (AUTO) 234 K/uL (150-450); RED BLOOD CELL COUNT(AUTO) 4.98 MIL/uL (4.0-5.2); RED CELL DISTRIBUTION WIDTH 15.7 % (11.5-15.0); WHITE BLOOD COUNT (AUTO) 7.3 K/uL (4.3-11.0)
[2023-06-17 12:00] VITALS: BP 155/80; TEMP 98.2; O2SAT 98
[2023-06-17 12:10] LABS: INR 1.2 (0.91-1.10); PARTIAL THROMBOPLASTIN TIME 27.9 SEC (24.3-34.3); PROTHROMBIN TIME 12.5 SECS (9.2-11.1)
[2023-06-17 12:11] LABS: CALCIUM, SERUM 9.1 mg/dL (8.5-10.1); CARBON DIOXIDE 18 mmol/L (21-32); CHLORIDE 104 mmol/L (98-107); CREATININE 1.6 mg/dL (0.6-1.3); GLUCOSE 140 mg/dL (74-106); MAGNESIUM 1.7 mg/dL (1.8-2.4); PHOSPHORUS 3.9 mg/dL (2.5-4.9); POTASSIUM 3.9 mmol/L (3.5-5.1); SODIUM SERUM 138 mmol/L (136-145); UREA NITROGEN, BLOOD 9 mg/dL (7-18)
[2023-06-17] MEDS: QUETIAPINE FUMARATE 100 MG TABLET PO SCH (21:37)
[2023-06-17] MEDS: ATORVASTATIN 10 MG TABLET PO SCH (21:37)
[2023-06-17] MEDS: MIRTAZAPINE 15 MG TABLET PO SCH (21:37)
[2023-06-18] MEDS: BLOOD SUGAR DIAGNOSTIC 1 EACH STRIP IN SCH ×6 (00:23→21:34)
[2023-06-18] MEDS: INSULIN REGULAR, HUMAN 100 UNIT/ML 3 ML VIAL SQ PRN ×3 (00:24→17:58)
[2023-06-18 00:33] VITALS: BP 155/80; TEMP 98.2; O2SAT 98
[2023-06-18] MEDS: IV D5/0.45 NACL 1,000 ML IV PRN (04:32)
[2023-06-18] MEDS: GLUCERNA 1.2 1,000 ML BOTTLE PEG PRN (05:57)
[2023-06-18] MEDS: PANTOPRAZOLE 40 MG TABLET.DR PO SCH ×2 (07:41→16:57)
[2023-06-18 08:50] VITALS: BP 174/76; TEMP 97.2; O2SAT 98
[2023-06-18] MEDS: ALLOPURINOL 100 MG TABLET PO SCH ×2 (09:12→16:57)
[2023-06-18] MEDS: METOPROLOL TARTRATE 50 MG TABLET PO SCH (09:13)
[2023-06-18] MEDS: CHOLECALCIFEROL 1,000 UNIT TABLET (VIT D3) PO SCH (09:13)
[2023-06-18] MEDS: DIVALPROEX SODIUM 250 MG TABLET.DR PO SCH ×2 (09:13→16:57)
[2023-06-18] MEDS: DOCUSATE SODIUM 250 MG CAPSULE PO SCH (09:13)
[2023-06-18] MEDS: AMLODIPINE BESYLATE 5 MG TABLET PO SCH (09:14)
[2023-06-18] MEDS: CLOPIDOGREL BISULFATE 75 MG TABLET PO SCH (09:14)
[2023-06-18] MEDS: THERAHONEY GEL 1.5 OZ TUBE TP SCH (09:16)
[2023-06-18] MEDS: EMPAGLIFLOZIN 25 MG TABLET PO SCH (09:16)
[2023-06-18] MEDS: PIPERACILLIN /TAZOBACTAM 3.375 G in IV D5W 100 ML IV SCH ×2 (09:16→21:02)
[2023-06-18] MEDS: CLOTRIMAZOLE 1% 15 GM TUBE TP SCH ×2 (09:31→17:52)
[2023-06-18 12:00] VITALS: BP 165/76; TEMP 98; O2SAT 98
[2023-06-18 16:50] VITALS: BP 171/73; TEMP 97.8; O2SAT 98
[2023-06-18] MEDS: MIRTAZAPINE 15 MG TABLET PO SCH (21:24)
[2023-06-18] MEDS: ATORVASTATIN 10 MG TABLET PO SCH (21:24)
[2023-06-18] MEDS: QUETIAPINE FUMARATE 100 MG TABLET PO SCH (21:25)
[2023-06-19] MEDS: BLOOD SUGAR DIAGNOSTIC 1 EACH STRIP IN SCH ×3 (01:06→08:10)
[2023-06-19 01:26] VITALS: BP 158/74; TEMP 97.9; O2SAT 98
[2023-06-19] MEDS: INSULIN REGULAR, HUMAN 100 UNIT/ML 3 ML VIAL SQ PRN ×2 (05:14→08:17)
[2023-06-19] MEDS: GLUCERNA 1.2 1,000 ML BOTTLE PEG PRN (05:20)
[2023-06-19] MEDS: IV D5/0.45 NACL 1,000 ML IV PRN (07:36)
[2023-06-19 08:00] VITALS: BP 147/64; TEMP 98.2; O2SAT 97
[2023-06-19] MEDS: PIPERACILLIN /TAZOBACTAM 3.375 G in IV D5W 100 ML IV SCH (08:20)
[2023-06-19] MEDS: EMPAGLIFLOZIN 25 MG TABLET PO SCH (08:53)
[2023-06-19] MEDS: CHOLECALCIFEROL 1,000 UNIT TABLET (VIT D3) PO SCH (08:53)
[2023-06-19 08:54] VITALS: BP 147/64
[2023-06-19] MEDS: DIVALPROEX SODIUM 250 MG TABLET.DR PO SCH (08:54)
[2023-06-19] MEDS: PANTOPRAZOLE 40 MG TABLET.DR PO SCH (08:54)
[2023-06-19] MEDS: DOCUSATE SODIUM 250 MG CAPSULE PO SCH (08:54)
[2023-06-19] MEDS: METOPROLOL TARTRATE 50 MG TABLET PO SCH (08:54)
[2023-06-19] MEDS: ALLOPURINOL 100 MG TABLET PO SCH (08:54)
[2023-06-19] MEDS: CLOPIDOGREL BISULFATE 75 MG TABLET PO SCH (08:54)
[2023-06-19] MEDS: CLOTRIMAZOLE 1% 15 GM TUBE TP SCH (08:55)
[2023-06-19] MEDS: THERAHONEY GEL 1.5 OZ TUBE TP SCH (08:55)
[2023-06-19] MEDS ORDERED: AMLODIPINE BESYLATE 5 MG TABLET PO SCH (09:00)
[2023-06-19] MEDS ORDERED: AMLO-212 PO (09:39)
[2023-06-19] MEDS ORDERED: QUETIAPINE FUMARATE 25 MG TABLET PO SCH (17:00)
== END 2023-06-19 13:30 | DRG 682 ==
LOC: ER 20:31 → TELE1 23:52 → TELE-TD 06-07 06:00 → MEDSG1 06-08 16:52
PROVIDERS: ADMIT Student in an Organized Health Care Education/Training Program; ATTEND Nurse Practitioner Acute Care
PROC: 05HB33Z Insertion of Infusion Device into Right Basilic Vein, Percutaneous Approach (ICD-10-PCS; principal; 2023-06-09)
PROC: 0DH63UZ Insertion of Feeding Device into Stomach, Percutaneous Approach (ICD-10-PCS; 2023-06-17)
DX: N17.0 Acute kidney failure with tubular necrosis (principal); G93.41 Metabolic encephalopathy; I21.A1 Myocardial infarction type 2; E44.0 Moderate protein-calorie malnutrition; I13.0 Hypertensive heart and chronic kidney disease with heart failure and stage 1 through stage 4 chronic kidney disease, or unspecified chronic kidney disease; F02.83 Dementia in other diseases classified elsewhere, unspecified severity, with mood disturbance; E87.0 Hyperosmolality and hypernatremia; L97.829 Non-pressure chronic ulcer of other part of left lower leg with unspecified severity; E87.20 Acidosis, unspecified; L97.819 Non-pressure chronic ulcer of other part of right lower leg with unspecified severity; R62.7 Adult failure to thrive; E86.1 Hypovolemia; I50.9 Heart failure, unspecified; N18.9 Chronic kidney disease, unspecified; E11.22 Type 2 diabetes mellitus with diabetic chronic kidney disease; E11.65 Type 2 diabetes mellitus with hyperglycemia; D69.6 Thrombocytopenia, unspecified; E78.5 Hyperlipidemia, unspecified; E86.0 Dehydration; E88.09 Other disorders of plasma-protein metabolism, not elsewhere classified; G30.9 Alzheimer's disease, unspecified; F32.A Depression, unspecified; F29 Unspecified psychosis not due to a substance or known physiological condition; K29.70 Gastritis, unspecified, without bleeding; R13.10 Dysphagia, unspecified; Z79.4 Long term (current) use of insulin; Z79.899 Other long term (current) drug therapy; Z91.148 Patient's other noncompliance with medication regimen for other reason; E11.622 Type 2 diabetes mellitus with other skin ulcer; R74.01 Elevation of levels of liver transaminase levels; F39 Unspecified mood [affective] disorder; R41.0 Disorientation, unspecified
CPT/HCPCS: 36410; 36415; 43246; 70450-TC; 71045-TC; 76705-TC; 76770-TC; 78226; 80048-TC; 80053-TC; 80076-TC; 80164-TC; 81001; 82140-TC; 82570-TC; 82607-TC; 82962-TC; 83605-TC; 83735-TC; 84100-TC; 84295-TC; 84300-TC; 84443-TC; 84484-TC; 85025-TC; 85730-TC; 87040-TC; 87081-TC; 87086-TC; 92526; 92611-TC; 97110-TC; 97112-TC; 97530-TC; A4223; A9537; G0378; J0360; J1815; J2543; J2704; J3480; J3490; J7030; J7042; J7050; J7060; J7070